=== PATIENT | female | born 2005 | race Caucasian/White ===

== ENCOUNTER 2024-03-24 22:22 | Inpatient (IN) | payer OTHER, SELFPAY ==
--- OUTSIDE RECORDS SUMMARY | 2024-03-24 22:32 | XMS_ITS ---
Author Name [facility] Organization Unknown Results Test Name/Text Value Interpretation Date Range Source CHORIOGONADOTROPIN ( TEST):PRTHR:PT:URINE:ORD: Normal [id number] [facility] HYALINE CASTS:NARIC:PT:URINE SED:QN:MICROSCOPY.LIGHT.LP F Normal [id number] 0 - 8 [facility] EPITHELIAL CELLS.SQUAMOUS:NARIC:PT:UR INE SED:QN:MICROSCOPY.LIGHT.HP F Normal [id number] [facility] MUCUS:NARIC:PT:URINE SED:QN:MICROSCOPY.LIGHT.LP F Normal [id number] [facility] LEUKOCYTES:NARIC:PT:URINE SED:QN:MICROSCOPY.LIGHT.HP F Abnormal [id number] 0 - 2 [facility] ERYTHROCYTES:NCNC:PT:URINE SED:QN:MICROSCOPY.LIGHT.HP F Abnormal [id number] 0 - 2 [facility] SPECIFIC GRAVITY:RDEN:PT:URINE:QN:R EFRACTOMETRY.AUTOMATED 1.023 Normal [id number] 1.001 - 1.035 [facility] GLUCOSE:MCNC:PT:URINE:SEMI QN:TEST STRIP.AUTOMATED Normal [id number] - [facility] BILIRUBIN:PRTHR:PT:URINE:O RD:TEST STRIP.AUTOMATED Normal [id number] - [facility] APPEARANCE:APER:PT:URINE:N OM: Abnormal [id number] - [facility] COLOR:TYPE:PT:URINE:NOM:AU TO Normal [id number] [facility] HEMOGLOBIN:PRTHR:PT:URINE: ORD:TEST STRIP.AUTOMATED Abnormal [id number] - [facility] NITRITE:PRTHR:PT:URINE:ORD :TEST STRIP.AUTOMATED Normal [id number] - [facility] PH:LSCNC:PT:URINE:SEMIQN:T EST STRIP.AUTOMATED 6 Normal [id number] 4.8 - 8 [facility] UROBILINOGEN:ACNC:PT:URINE :SEMIQN:TEST STRIP Normal [id number] - [facility] KETONES:MCNC:PT:URINE:SEMI QN:TEST STRIP.AUTOMATED Abnormal [id number] - [facility] PROTEIN:MCNC:PT:URINE:SEMI QN:TEST STRIP.AUTOMATED Abnormal [id number] - [facility] LEUKOCYTE ESTERASE:PRTHR:PT:URINE:OR D:TEST STRIP.AUTOMATED Abnormal [id number] - [facility] GLUCOSE:MCNC:PT:URINE:SEMI QN:TEST STRIP.AUTOMATED Normal [id number] - [facility] BILIRUBIN:PRTHR:PT:URINE:O RD:TEST STRIP.AUTOMATED Normal [id number] - [facility] COLOR:TYPE:PT:URINE:NOM:AU TO Normal [id number] [facility] APPEARANCE:APER:PT:URINE:N OM: Normal [id number] - [facility] HEMOGLOBIN:PRTHR:PT:URINE: ORD:TEST STRIP.AUTOMATED Normal [id number] - [facility] NITRITE:PRTHR:PT:URINE:ORD :TEST STRIP.AUTOMATED Normal [id number] - [facility] PH:LSCNC:PT:URINE:SEMIQN:T EST STRIP.AUTOMATED 7 Normal [id number] 4.8 - 8 [facility] UROBILINOGEN:ACNC:PT:URINE :SEMIQN:TEST STRIP Normal [id number] - [facility] KETONES:MCNC:PT:URINE:SEMI QN:TEST STRIP.AUTOMATED Normal [id number] - [facility] PROTEIN:MCNC:PT:URINE:SEMI QN:TEST STRIP.AUTOMATED Normal [id number] - [facility] LEUKOCYTE ESTERASE:PRTHR:PT:URINE:OR D:TEST STRIP.AUTOMATED Normal [id number] - [facility] SPECIFIC GRAVITY:RDEN:PT:URINE:QN:R EFRACTOMETRY.AUTOMATED 1.01 Normal [id number] 1.001 - 1.035 [facility] GLOMERULAR FILTRATION RATE/1.73 SQ M.PREDICTED:ARVRAT:PT:SER/ PLAS/BLD:QN:CREATININE-BAS ED FORMULA (CKD-EPI) 103mL/min/1. 73m2 Normal [id number] - [facility] CREATININE RENAL CLEARANCE.PREDICTED:VRAT:P T:SER/PLAS:QN:COCKCROFT-GA ULT FORMULA 93mL/min Normal [id number] [facility] ANION GAP 3:SCNC:PT:SER/PLAS:QN: 12mmol/L Normal [id number] 8 - 16 [facility] UREA NITROGEN:MCNC:PT:SER/PLAS: QN: 11mg/dL Normal [id number] 6 - 23 [facility] BICARBONATE:SCNC:PT:SER/PL :QN: 23mmol/L Normal [id number] 22 - 29 [facility] CREATININE:MCNC:PT:SER/EVAN S:QN: 0.84mg/dL Normal [id number] 0.5 - 1.04 [facility] SODIUM:SCNC:PT:SER/PLAS:QN : 137mmol/L Normal [id number] 135 - 145 [facility] POTASSIUM:SCNC:PT:SER/PLAS :QN: 4.5mmol/L Normal [id number] 3.5 - 5.3 [facility] CHLORIDE:SCNC:PT:SER/PLAS: QN: 103mmol/L Normal [id number] 97 - 107 [facility] GLUCOSE:MCNC:PT:SER/PLAS:Q N: 98mg/dL Normal [id number] 70 - 99 [facility] ALANINE AMINOTRANSFERASE:CCNC:PT:S ER/PLAS:QN:WITH P-5'-P 16U/L Normal [id number] 10 - 55 [facility] ASPARTATE AMINOTRANSFERASE:CCNC:PT:S ER/PLAS:QN:WITH P-5'-P 22U/L Normal [id number] 10 - 50 [facility] BILIRUBIN:MCNC:PT:SER/PLAS :QN: 0.5mg/dL Normal [id number] 0 - 1.2 [facility] ALKALINE PHOSPHATASE:CCNC:PT:SER/PL :QN: 62U/L Normal [id number] 38 - 148 [facility] TRIACYLGLYCEROL LIPASE:CCNC:PT:SER/PLAS:QN : 27U/L Normal [id number] 13 - 60 [facility] HEMATOCRIT:VFR:PT:BLD:QN:A UTOMATED COUNT 36.5% Normal [id number] 35 - 46 [facility] ERYTHROCYTE DISTRIBUTION WIDTH:RATIO:PT:RBC:QN:AUTO MATED COUNT 12.8% Normal [id number] 11.5 - 15 [facility] ERYTHROCYTE MEAN CORPUSCULAR HEMOGLOBIN:ENTMASS:PT:RBC: QN:AUTOMATED COUNT 30.2pg Normal [id number] 25 - 34 [facility] ERYTHROCYTE MEAN CORPUSCULAR HEMOGLOBIN CONCENTRATION:MCNC:PT:RBC: QN:AUTOMATED COUNT 34g/dL Normal [id number] 31 - 36 [facility] PLATELETS:NCNC:PT:BLD:QN:A UTOMATED COUNT 266x10(9)/L Normal [id number] 150 - 400 [facility] ERYTHROCYTES:NCNC:PT:BLD:Q N:AUTOMATED COUNT 4.1x10(12)/L Normal [id number] 3.8 - 5.2 [facility] PLATELET MEAN VOLUME:ENTVOL:PT:BLD:QN:AU TOMATED COUNT 11.1fL Normal [id number] 9.3 - 13 [facility] LEUKOCYTES:NCNC:PT:BLD:QN: AUTOMATED COUNT 6.7x10(9)/L Normal [id number] 3.5 - 10 [facility] HEMOGLOBIN:MCNC:PT:BLD:QN: 12.4g/dL Normal [id number] 12 - 16 [facility] ERYTHROCYTE DISTRIBUTION WIDTH:ENTVOL:PT:RBC:QN:AUT OMATED COUNT 40.6fL Normal [id number] 35 - 47 [facility] ERYTHROCYTE MEAN CORPUSCULAR VOLUME:ENTVOL:PT:RBC:QN:AU TOMATED COUNT 89fL Normal [id number] 80 - 99 [facility] EOSINOPHILS:NCNC:PT:BLD:QN :AUTOMATED COUNT 0.02x10(9)/L Normal [id number] 0 - 0.5 [facility] NEUTROPHILS:NCNC:PT:BLD:QN :AUTOMATED COUNT 4.39x10(9)/L Normal [id number] 2 - 7.5 [facility] LYMPHOCYTES:NCNC:PT:BLD:QN :AUTOMATED COUNT 1.54x10(9)/L Normal [id number] 1 - 4 [facility] BASOPHILS/100 LEUKOCYTES:NFR:PT:BLD:QN:A UTOMATED COUNT 0.1% Normal [id number] 0 - 2 [facility] MONOCYTES:NCNC:PT:BLD:QN:A UTOMATED COUNT 0.72x10(9)/L Normal [id number] 0 - 1 [facility] BASOPHILS:NCNC:PT:BLD:QN:A UTOMATED COUNT 0.01x10(9)/L Normal [id number] 0 - 0.2 [facility] MONOCYTES/100 LEUKOCYTES:NFR:PT:BLD:QN:A UTOMATED COUNT 10.8% Normal [id number] 4 - 12 [facility] NEUTROPHILS/100 LEUKOCYTES:NFR:PT:BLD:QN:A UTOMATED COUNT 65.7% Normal [id number] 40 - 75 [facility] LYMPHOCYTES/100 LEUKOCYTES:NFR:PT:BLD:QN:A UTOMATED COUNT 23.1% Normal [id number] 20 - 45 [facility] EOSINOPHILS/100 LEUKOCYTES:NFR:PT:BLD:QN:A UTOMATED COUNT 0.3% Normal [id number] 0 - 7 [facility] CHORIOGONADOTROPIN ( TEST):PRTHR:PT:URINE:ORD: Normal [id number] [facility] History of Medication Use Medication Directions Dispensed Refills Start Date End Date Stat Aczone 7.5 % topical gel with pump Aczone 7.5 % topical gel with pump 10/02/2021 completed tretinoin 0.05 % topical cream tretinoin 0.05 % topical cream 10/02/2021 completed rizatriptan 10 mg tablet rizatriptan 10 mg tablet 10/02/2021 completed tretinoin 0.025 % topical cream tretinoin 0.025 % topical cream 10/02/2021 completed Vestura (28) 3 mg-0.02 mg tablet Take 1 tablet every day by oral route. Take 1 tablet every day by oral route. 10/02/2021 completed None recorded. (No additional sig information) 10/02/2021 completed Seysara 100 mg tablet Seysara 100 mg tablet 10/02/2021 completed Problems Problem Status Onset Date Problem Type Date of Resoluti on Source Acne active 2020-02-29 ProblemAct [facility] Oral contraception active 2020-02-29 ProblemAct [facility] Panic attack active 2020-02-29 ProblemAct [facility] Polycystic ovary syndrome active 2020-02-29 ProblemAct [facility] Urinary tract infectious disease active 2020-02-29 ProblemAct [facility]
[2024-03-24 22:55] VITALS: BP 130/71; PULSE 90; RESP 16; TEMP 36.9; O2SAT 100
[2024-03-24 23:40] VITALS: BMI 24.3
--- NOTE | 2024-03-25 05:21 | PC.ADMIT ---
Pt is a 19 yo female pt admitted to at 2252 on 03/24/24 via interhospital transfer from [facility] after referral from CARE Team. Pt signed a CV. Pt only medical issue is PCOS. Pt denies substance, alcohol use or tobacco use. Pt states that her dog passed in October of this year and that was her only precipitant that she can think of. She also states that she had the thought to just take an overdose of pills and did not really think of it as a suicide attempt . Pt states that she had the impulse to take them and that she had thought of this before but did not act on it. Pt took lunesta, topomax and prozac with 2 espceci abreu. Pt then states that she blacked out. Pt was brought to ICU at [facility] for medical care on 03/20. Pt has a past hx of SIB/cutting, OCD and binge eating when stressed. Pt has not cut for several years but reports bi monthly binging. Pt also has an allergy to penicilin and has a red meat sensitivity with GI issues as a side effect. Utox is negatve. Pt take patch for PCOS which has been brought to the pharmacy. Pt presents as tearful and anxious to be here. Pt skin check unremarkable. Pt thought process is clear and linear. crew caller notified and pt placed on 15 minute safety check, pt states she feels safe here in hospital.
[2024-03-25 07:36] VITALS: BP 121/69; PULSE 85; RESP 16; TEMP 36.7; O2SAT 99
[2024-03-25 08:47] LABS: Albumin Level 4.3 g/dL (3.5-5.0); Anion Gap 14 (12-20); Aspartate Amino Transferase 21 U/L (5-31); Blood Urea Nitrogen 12 mg/dL (9-16); Calcium 9.4 mg/dL (8.4-10.2); Carbon Dioxide 20 mmol/L (22-29); Chloride 107 mmol/L (96-108); Cholesterol 204 mg/dL (<200); Creatinine Clr Calc Pharmacy 78.2; Estimated Glomerular Filt Rate > 60; Glucose Random 100 mg/dL (60-115); HDL Cholesterol 72 mg/dL (>40); LDL Cholesterol Calculated 110 mg/dL (<100); Potassium 3.8 mmol/L (3.3-5.1); Sodium 137 mmol/L (135-145); Total Protein 7.7 g/dL (6.5-8.0); Triglycerides 111 mg/dL (<150)
[2024-03-25 08:53] LABS: Alanine Aminotransferase 21 U/L (0-31); Alkaline Phosphatase 63 U/L (39-117)
--- NOTE | 2024-03-25 12:15 | HO.PM.IMCN ---
History of Present Illness Data of Consult Service Date: 03/25/24 Primary Care Provider: Unknown Physician HPI Reason for consult: Admission H&P Pt is a 19-year-old female with a PMH significant for?PCOS, HLD, OCD, depression, and binge eating disorder who is admitted to M3 psychiatry unit for increasing depression with suicide attempt after toxic ingestion of home medications. Medical consult for admission H&P. Patient reports she follows closely with PCP who has not started her on any medications for HLD. Currently patient has no acute medical complaints. Denies fever, chills, nausea, vomiting, abdominal pain. No chest pain/pressure, palpitations. Denies shortness or breath or difficulty breathing. Review of Systems Review of Systems: Patient has no acute medical complaints at this time COUNTS INCLUDE 234 BEDS AT THE [facility] Social History Household Members: None Housing: Apartment Do you presently have visiting nurse or other home services: No Patient Tobacco Use Status: Never used Tobacco Use of substances other than those prescribed or required for medical reasons: No Have you been hit, kicked, punched, or otherwise hurt by someone within the past year? If so, by whom?: No Do you feel safe in your current relationship?: Yes Is there a partner from a previous relationship who is making you feel unsafe now?: No Are you made to feel afraid or neglected: No Advance Directives: No Advance Directives Information Provided: Yes Recently lost weight without trying: No How much weight loss: Not applicable Eating poorly because of decreased appetite: No Nutrition screen score: 0 Nutrition Risks: No Nutritional Risk Patient : No : No Poor oral hygiene: No Meds Allergies Allergy/AdvReac Type Severity Reaction Status Date / Time Penicillins Allergy Severe Anaphylaxis Verified 03/24/24 23:36 red meat Allergy Severe Diarrhea Uncoded 03/24/24 23:39 Active Medications: Current Medications Acetaminophen (Acetaminophen 325 Mg Tablet) 650 mg PO Q6H PRN PRN Reason: Headache/Pain Mild Scale (1-3) Al Hydroxide/Mg Hydroxide (Magnesium Hydrox/Alum Hydrox 30 Ml Oral.Susp) 30 ml PO Q6H PRN PRN Reason: Heartburn/Nausea Hydroxyzine HCl (Hydroxyzine Hcl 25 Mg Tablet) 25 mg PO Q6H PRN PRN Reason: Anxiety Magnesium Hydroxide (Milk Of Magnesia 30 Ml Oral.Susp) 30 ml PO DAILY PRN PRN Reason: Constipation Trazodone HCl (Trazodone Hcl 50 Mg Tablet) 50 mg PO BEDTIME MRX1 PRN PRN Reason: Insomnia Home Medications ?Medication ?Instructions ?Recorded ?Confirmed ?Last Taken ?Type eszopiclone 2 mg tablet 2 mg PO BEDTIME PRN insomnia 03/25/24 03/25/24 Unknown History fluoxetine 40 mg capsule 60 mg PO DAILY 03/25/24 03/25/24 Unknown History norelgestromin 150 mcg-e.estradiol 1 patch transdermal QWEEK 03/25/24 03/25/24 03/20/24 History 35 mcg/24 hr weekly transderm patch topiramate 50 mg tablet 50 mg PO BEDTIME 03/25/24 03/25/24 Unknown History Physical Exam Vital Signs and Narrative: Vital Signs: Last Vital Signs Temp 98.0 F 03/25/24 07:36 Pulse 85 03/25/24 07:36 Resp 16 03/25/24 07:36 BP 121/69 03/25/24 07:36 Pulse Ox 99 03/25/24 07:36 O2 Del Method Room Air 03/25/24 07:36 BMI result Body Mass Index 24.3 General: AOx3, no acute distress Resp: CTA bilaterally CVS: S1, S2, RRR GI: +BS, NT, no distention Skin: Warm, dry Neuro: Cranial nerves II-XII grossly intact bilaterally. Motor grossly intact bilaterally Extremities: No edema Results Labs 03/25/24 08:12 Labs: Laboratory Results - last 24 hr 03/25/24 08:12 Anion Gap 14 Estim Creat Clear Calc 78.2 Estimated GFR > 60 Random Glucose 100 Calcium 9.4 Total Bilirubin 1.0 AST 21 ALT 21 Alkaline Phosphatase 63 Total Protein 7.7 Albumin 4.3 Triglycerides 111 Cholesterol 204 H LDL Cholesterol, Calc 110 H HDL Cholesterol 72 Assessment and Plan (1) Medical clearance for psychiatric admission: Status: Acute Plan Pt is a 19-year-old female with a PMH significant for?PCOS, HLD, OCD, depression, and binge eating disorder who is admitted to [facility] psychiatry unit for increasing depression with suicide attempt after toxic ingestion of home medications. Medical consult for admission H&P. Mood disorder Plan as per Psychiatry HLD Not on home meds Follows closely with PCP, diet-controlled Patient otherwise has no acute medical complaints or chronic medical conditions. Will sign off for now. Thank you for allowing us to participate in the care of this patient.
[2024-03-25] MEDS: Sertraline HCL 25 MG TABLET PO (15:06)
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
[2024-03-25 20:00] VITALS: RESP 16
[2024-03-26 07:30] VITALS: BP 114/75; PULSE 73; RESP 16; TEMP 36.7; O2SAT 99
[2024-03-26] MEDS: Sertraline HCL 50 MG TABLET PO (08:19)
--- NOTE | 2024-03-26 10:17 | HO.PSYCHPN ---
Subjective Subjective Date of Service: 03/26/24 Reason For Visit: Major Depressive Disorder Interim History: Overall appears to be adjusting well to the unit. Reports today feeling okay. No med concerns. Is attending groups. Is able to thoughtfully discuss pre-admission circumstances. Reports acknowledging that she needed help, otherwise she would not have ended up in the hospital. Still trying to reconcile how she got to this point. Feeling very supported by family and boyfriend. 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 . Reports wanting to get local supports regarding mental health treatment. Very clear she is not suicidal. Hopeful around disposition planning with treatment team after the weekend. Medication Compliance: Yes Side effects from medications: No Attending Groups: Yes Review of Systems Acute medical concerns: No Review of Systems Review of Systems Unremarkable Mental Status Exam Mental Status Exam Narrative: adequately dressed and groomed. cooperative. no PMA/PMR. speech nml rate, amount, loudness, tone, latency. thoughts linear and logical. affect full range, normo-intense, non-labile. mood better denies SI/SIBI/HI/AVH. Diagnostics Vital Signs (24Hr): Vital Signs - 24 hr 03/25/24 20:00 03/26/24 07:30 Temperature 98.0 F Pulse Rate 73 Respiratory Rate 16 16 Blood Pressure 114/75 Pulse Oximetry 99 Oxygen Delivery Method Room Air BMI result Body Mass Index 24.3 Labs 03/25/24 08:12 Labs: Laboratory Results - last 48 hr 03/25/24 08:12 Sodium 137 Potassium 3.8 Chloride 107 Carbon Dioxide 20 L Anion Gap 14 BUN 12 Creatinine 0.99 Estim Creat Clear Calc 78.2 Estimated GFR > 60 Random Glucose 100 Calcium 9.4 Total Bilirubin 1.0 AST 21 ALT 21 Alkaline Phosphatase 63 Total Protein 7.7 Albumin 4.3 Triglycerides 111 Cholesterol 204 H LDL Cholesterol, Calc 110 H HDL Cholesterol 72 Medications Medications Current Medications Acetaminophen (Acetaminophen 325 Mg Tablet) 650 mg PO Q6H PRN PRN Reason: Headache/Pain Mild Scale (1-3) Al Hydroxide/Mg Hydroxide (Magnesium Hydrox/Alum Hydrox 30 Ml Oral.Susp) 30 ml PO Q6H PRN PRN Reason: Heartburn/Nausea Hydroxyzine HCl (Hydroxyzine Hcl 25 Mg Tablet) 25 mg PO Q6H PRN PRN Reason: Anxiety Magnesium Hydroxide (Milk Of Magnesia 30 Ml Oral.Susp) 30 ml PO DAILY PRN PRN Reason: Constipation Pt Own ( Norelgestromin-Ethin .Estradiol 150-35 Mcg/24 Hr Patch Weekly) 1 patch TRANSDERMA Boyer HAKEEM Sertraline HCl (Sertraline Hcl 50 Mg Tablet) 50 mg PO DAILY HAKEEM Last Admin: 03/26/24 08:19 Dose: 50 mg Allergies Allergies Allergy/AdvReac Type Severity Reaction Status Date / Time Penicillins Allergy Severe Anaphylaxis Verified 03/24/24 23:36 red meat Allergy Severe Diarrhea Uncoded 03/24/24 23:39 Assessment & Plan Assessment & Plan (1) Depressive disorder: Status: Acute Code(s): F32.A - Depression, unspecified (2) Anxiety disorder: Status: Acute Code(s): F41.9 - Anxiety disorder, unspecified Plan zoloft 25 today and 50 as of tomorrow for depression and anxiety. h/o doing well on zoloft 200 daily. DC topiramate as not meeting justification for use in costs/benefits analysis. DC lunesta for the same reason. continue outpt regimen otherwise. 03/26/2024: No changes Reason for continued inpatient stay Substantial Risk for: rapid decompensation Time Spent With Patient Time: Total time managing care of this patient today ____ minutes.
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
[2024-03-26 20:00] VITALS: BP 129/63; PULSE 74; RESP 16; TEMP 36.5; O2SAT 100
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
--- NOTE | 2024-03-27 00:12 | PC.NURSE ---
documentation reviewed and updated-officer from [facility] responded at 2044 not 0845.
[2024-03-27 07:40] VITALS: BP 116/64; PULSE 62; RESP 14; TEMP 36.9; O2SAT 100
[2024-03-27] MEDS: ETHINYL ESTRADIOL TRANSDERMA (08:59)
[2024-03-27] MEDS: NORELGESTROMIN TRANSDERMA (08:59)
[2024-03-27] MEDS: Sertraline HCL 50 MG TABLET PO (09:00)
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
== END 2024-03-27 10:50 | disposition home or self-care (01) | DRG 881 ==
PROVIDERS: Admitting Provider Social Worker; Visit Provider Psychiatry & Neurology Psychiatry
DX: F32.9 Major depressive disorder, single episode, unspecified (principal); F50.20 Bulimia nervosa, unspecified; F41.9 Anxiety disorder, unspecified; E28.2 Polycystic ovarian syndrome; E78.5 Hyperlipidemia, unspecified; Z62.810 Personal history of physical and sexual abuse in childhood; Z91.51 Personal history of suicidal behavior; Z91.52 Personal history of nonsuicidal self-harm; Z68.24 Body mass index [BMI] 24.0-24.9, adult; Z79.899 Other long term (current) drug therapy
CPT/HCPCS: 36415; 80053; 80061

== ENCOUNTER → 2024-03-24 22:22 | Outpatient (BNV) | payer OTHER, SELFPAY | PROVIDERS: Admitting Provider Social Worker; Visit Provider Student in an Organized Health Care Education/Training Program | DX: Z02.2 Encounter for examination for admission to residential institution (principal) | CPT/HCPCS: 99429 ==

== ENCOUNTER → 2024-03-24 22:22 | Outpatient (BNV) | payer OTHER, SELFPAY | PROVIDERS: Admitting Provider Social Worker; Visit Provider Psychiatry & Neurology Psychiatry | DX: F32.2 Major depressive disorder, single episode, severe without psychotic features (principal); F41.9 Anxiety disorder, unspecified | CPT/HCPCS: 90792; 99232; 99238 ==